=== PATIENT | male | born 1955 | race Two or more races ===

== ENCOUNTER → 2017-05-01 | Emergency (ER) | payer SELFPAY ==
[~2017-05-01] VITALS: Ht 180.3 cm; Wt 77.1 kg
[~2017-05-01] MED LIST: BSS 15ml BTL ONE; BSS 500ml btl ONE; Bupivacaine 0.75% 30ml vial INJ ONE; Dexamethasone 4mg/ml vial ONE; Goniosol 2.5% Opth Soln - 15ml ONE; Indocyanine Green 25mg Inj INJ ONE; Kenalog-40 1ml Vial ONE; Lidocaine 2% MPF 5ml Vial INJ ONE; Maxitrol Opth Oint 3.5gm ONE; Povidone-Iodine 5% opth solution ONE; Pred Forte 1% Opth Susp 1ml ONE; Tetracaine 0.5% Opth 4ml Soln ONE
[2017-05-01 10:40] VITALS: BP 157/95
--- NOTE | 2017-05-01 15:50 | Emergency Room Report ---
History of Present Illness General Chief Complaint: Eye Problems Source: Patient Present Illness HPI 61-year-old male, sent in by account classification clerk to have surgery on his retina today. States that he has been having problems with his vision for 2 months. No other complaints Allergies: Coded Allergies: No Known Allergies (Unverified , 05/01/17) Patient History Past Medical History: see triage record Past Surgical History: none Pertinent Family History: none Reviewed Nursing Documentation: PMH: Agreed, PSxH: Agreed Nursing Documentation-PMH Past Medical History: No Stated History Review of Systems All Other Systems: negative except mentioned in HPI Physical Exam Vital Signs Date Time Temp Pulse Resp B/P (MAP) Pulse Ox O2 Delivery O2 Flow Rate FiO2 05/01/17 10:38 98.1 62 16 157/95 98 Room Air Sp02 EP Interpretation: reviewed, normal General Appearance: normal inspection, well appearing, no apparent distress, alert, GCS 15, non-toxic Head: normocephalic, atraumatic Eyes: bilateral eye PERRL, bilateral eye EOMI, bilateral eye other - dec vision R eye ENT: normal ENT inspection, normal pharynx, normal voice, moist mucus membranes Neck: normal inspection, full range of motion, supple Respiratory: normal inspection, lungs clear, normal breath sounds, no respiratory distress, no retraction, no wheezing, speaking full sentences, chest symmetrical Cardiovascular #1: normal inspection, regular rate, rhythm, normal capillary refill Cardiovascular #2: 2+ radial (R), 2+ radial (L) Gastrointestinal: normal inspection, non tender, soft, non-distended, no guarding Genitourinary: no CVA tenderness Musculoskeletal: normal inspection, back normal, normal range of motion, non- tender Neurologic: normal inspection, alert, oriented x3, responsive, motor strength/ tone normal, sensory intact, normal gait, speech normal Psychiatric: normal inspection, judgement/insight normal, memory normal Skin: normal inspection, normal color, no rash, warm/dry, well hydrated, normal turgor Medical Decision Making Diagnostic Impression: Primary Impression: Eye problem ER Course 61-year-old male here for right eye blurry vision for 2 months, here for surgery DDX: Chronic right eye vision loss, macular degeneration, retinal detachment, cataracts ER course: Patient has remained stable during ED stay. I spoke with 's team, patient will not be able to have surgery today , instructed to have patient come back tomorrow morning for ambulatory surgery Disposition: Patient is to be discharged to home. Instructed to come back t hospital at 5:30 in the morning for surgery Please note that this Emergency Department Report was dictated using [employer] data analyst technology software, occasionally this can lead to erroneous entry secondary to interpretation by the dictation equipment Last Vital Signs Date Time Temp Pulse Resp B/P (MAP) Pulse Ox O2 Delivery O2 Flow Rate FiO2 05/01/17 10:38 98.1 62 16 157/95 98 Room Air Disposition: HOME, SELF-CARE Condition: Stable Referrals: KEN HILL M.D. (PCP) Additional Instructions: PLEASE GO TO ADMITTING AT 5:30AM TOMORROW MORNING FOR YOUR SURGERY Bruce Hammond M.D. May 01, 2017 15:50
== END | disposition home or self-care (01) ==
LOC: EMR 11:47
DX: H53.9 Unspecified visual disturbance (principal)
CPT/HCPCS: 99285